=== PATIENT | female | born 1965 | race Caucasian/White ===

== ENCOUNTER 2024-01-01 11:52 | Inpatient (IN) | payer MEDICAID ==
[~2024-01-01] VITALS: Ht 154.9 cm; Wt 45.3 kg
[~2024-01-01 11:52] MED LIST: METHADONE
[2024-01-01 13:24] LABS: Basophils # (auto) 0 10 ^3/uL (0-0.2); Basophils % (auto) 0.4 % (0.0-2.0); Eosinophils # (auto) 0.1 10 ^3/uL (0-0.8); Eosinophils % (auto) 1.9 % (0.0-7.0); Hematocrit 25.7 % (36.0-46.0); Hemoglobin 7.9 g/dL (12.2-16.2); Lymphocytes # (auto) 0.8 10 ^3/uL (0.4-5.4); Lymphocytes % (auto) 23.5 % (10.0-50.0); Mean Corpuscular Hemoglobin 21.3 pg (28.0-32.0); Mean Corpuscular Hgb Conc. 30.8 g/dL (32.0-36.0); Monocytes # (auto) 0.4 10 ^3/uL (0-1.3); Monocytes % (auto) 10.8 % (0.0-12.0); Neutrophils # (auto) 2.2 10 ^3/uL (1.6-8.6); Neutrophils % (auto) 63.4 % (37.0-80.0); Nucleated Red Blood Cells % 0.1 %; Platelet Count (auto) 227 10^3/uL (140-450); Red Blood Cells 3.72 10^6/uL (4.0-5.20); Red Cell Distribution Width 20.5 % (11.8-14.3); White Blood Cell 3.5 10^3/uL (4.4-10.8)
[2024-01-01 13:40] LABS: Chloride 105 mmol/L (98-107); Potassium 4.5 mmol/L (3.5-5.1); Sodium 138 mmol/L (136-145)
[2024-01-01 13:41] LABS: Anion Gap 4 (5-15); Carbon Dioxide 29 mmol/L (20-31)
[2024-01-01 13:42] LABS: Calcium 8.8 mg/dL (8.7-10.4)
[2024-01-01 13:46] LABS: BUN/Creatinine Ratio 23.1 (10.0-20.0); Blood Urea Nitrogen 18 mg/dL (9-23); Glucose 83 mg/dL (74-106)
[2024-01-01 13:56] LABS: CRP High Sensitivity 1.43 mg/dL (<1.0)
[2024-01-01 14:06] LABS: Erythrocyte Sedimentation Rate 106 mm/hr (0-20)
[2024-01-01 14:32] LABS: Ovalocytes FEW
[2024-01-01 14:33] LABS: Anisocytosis Slight; Hypochromia Moderate; Platelet Estimate Adequate
[2024-01-01] MEDS ORDERED: SODIUM CHLORIDE 0.9% 500 ML IV ONE (17:30)
[2024-01-01] MEDS ORDERED: VANCOMYCIN 750mg/150ml 150 ML IV ONE (18:00)
[2024-01-01] MEDS: cefTRIAXone 1GM/50ML D5W 50 ML IV ONE (19:04)
[2024-01-01] MEDS: SODIUM CHLORIDE 0.9% 1,000 ML IV ONE (19:04)
[2024-01-01 19:40] VITALS: RESP 16
[2024-01-01] MEDS: VANCOMYCIN PER PHARMACY 0 MG IV SCH (20:49)
[2024-01-01] MEDS: VANCOMYCIN 750mg/150ml 150 ML IV SCH (21:08)
[2024-01-01] MEDS ORDERED: HALOPERIDOL LACTATE 5 MG/ML INJ VIAL IM PRN (21:45)
[2024-01-01] MEDS ORDERED: ACETAMINOPHEN 325 MG TAB PO PRN (21:45)
[2024-01-01] MEDS ORDERED: MORPHINE SULFATE INJ 2 MG/ml SYRG IV PRN (21:45)
[2024-01-01] MEDS ORDERED: NITROGLYCERIN 0.4 MG SL TAB SL PRN (21:45)
[2024-01-01] MEDS: SODIUM CHLOR 0.9% PF (SALINE LOCK) 10ML VIAL/SYR IV SCH (22:17)
[2024-01-01 22:48] LABS: % Iron Saturation 7.5 % (15-50)
[2024-01-01 23:36] LABS: Folate (Folic Acid) 14.11 ng/mL (>5.38)
[2024-01-02] MEDS: ERGOCALCIFEROL 50,000 UNIT(1.25MG) CAP PO SCH (02:35)
[2024-01-02] MEDS: ONDANSETRON HCL 4 MG/2 ML VIAL IV PRN (04:29)
[2024-01-02] MEDS: PANTOPRAZOLE 40 MG TAB PO SCH (05:28)
[2024-01-02 06:07] LABS: Basophils # (auto) 0 10 ^3/uL (0-0.2); Eosinophils # (auto) 0.1 10 ^3/uL (0-0.8); Lymphocytes # (auto) 0.6 10 ^3/uL (0.4-5.4); Monocytes # (auto) 0.3 10 ^3/uL (0-1.3); Neutrophils # (auto) 2.4 10 ^3/uL (1.6-8.6)
[2024-01-02 06:09] LABS: Basophils % (auto) 0.7 % (0.0-2.0); Eosinophils % (auto) 2.1 % (0.0-7.0); Hematocrit 27.8 % (36.0-46.0); Hemoglobin 8.3 g/dL (12.2-16.2); Lymphocytes % (auto) 17.4 % (10.0-50.0); Mean Corpuscular Hemoglobin 20.9 pg (28.0-32.0); Mean Corpuscular Hgb Conc. 29.9 g/dL (32.0-36.0); Mean Corpuscular Volume 69.8 fL (80.0-100.0); Neutrophils % (auto) 69.8 % (37.0-80.0); Nucleated Red Blood Cells % 0.1 %; Platelet Count (auto) 185 10^3/uL (140-450); Red Blood Cells 3.98 10^6/uL (4.0-5.20); White Blood Cell 3.4 10^3/uL (4.4-10.8)
[2024-01-02 06:14] LABS: Albumin 3.2 g/dL (3.2-4.8); Alkaline Phosphatase 84 U/L (46-116); Anion Gap 4 (5-15); Aspartate Aminotransferase 12 U/L (13-40); BUN/Creatinine Ratio 18.7 (10.0-20.0); Bilirubin, Total 0.2 mg/dL (0.2-1.0); Blood Urea Nitrogen 17 mg/dL (9-23); Calcium 8.6 mg/dL (8.7-10.4); Carbon Dioxide 26 mmol/L (20-31); Chloride 111 mmol/L (98-107); Glucose 90 mg/dL (74-106); Potassium 4.3 mmol/L (3.5-5.1); Sodium 141 mmol/L (136-145); Total Protein 7.5 g/dL (5.7-8.2)
[2024-01-02 06:35] LABS: Alanine Aminotransferase < 9 U/L (7-40)
[2024-01-02 06:38] LABS: Red Cell Distribution Width 20.6 % (11.8-14.3)
[2024-01-02 07:47] LABS: Anisocytosis Slight; Hypochromia Moderate; Platelet Estimate Adequate
[2024-01-02 10:46] VITALS: RESP 18
[2024-01-02] MEDS: ENOXAPARIN SOD 40 MG/0.4 ML SYRINGE SC SCH (11:24)
[2024-01-02] MEDS: IRON SUCROSE COMPLEX 110 ML IV SCH (13:01)
[2024-01-02] MEDS ORDERED: CLIN1CAP70 PO (14:23)
[2024-01-02 14:36] VITALS: BP 120/62; PULSE 85; RESP 15; TEMP 98.2; O2SAT 93; O2SAT 96
[2024-01-02 14:45] VITALS: BP 120/62; PULSE 85; RESP 18; TEMP 98.2; O2SAT 93
[2024-01-02] MEDS ORDERED: FER325T PO (15:06)
[2024-01-02 18:09] VITALS: TEMP 36.8
[2024-01-02] MEDS ORDERED: cefTRIAXone 1GM/50ML D5W 50 ML IV SCH (21:00)
[2024-01-05 08:39] LABS: Hepatitis B Surface Antigen Negative (Negative)
[2024-01-05 10:56] LABS: Hepatitis C Antibody Positive (Negative)
== END 2024-01-02 18:35 | disposition home or self-care (01) | DRG 383 ==
LOC: ER 11:52 → OVERFLOW 21:34 → CENTRAL 01-02 14:10
PROVIDERS: ADMIT Hospitalist; ATTEND Hospitalist
DX: L03.115 Cellulitis of right lower limb (principal); E44.1 Mild protein-calorie malnutrition; S91.301A Unspecified open wound, right foot, initial encounter; L97.918 Non-pressure chronic ulcer of unspecified part of right lower leg with other specified severity; S91.302A Unspecified open wound, left foot, initial encounter; F17.210 Nicotine dependence, cigarettes, uncomplicated; D50.9 Iron deficiency anemia, unspecified; E55.9 Vitamin D deficiency, unspecified; E87.6 Hypokalemia; L97.919 Non-pressure chronic ulcer of unspecified part of right lower leg with unspecified severity; H54.61 Unqualified visual loss, right eye, normal vision left eye; M06.9 Rheumatoid arthritis, unspecified; Z59.00 Homelessness unspecified; Z82.3 Family history of stroke; Z68.1 Body mass index [BMI] 19.9 or less, adult; Z80.0 Family history of malignant neoplasm of digestive organs; Z82.49 Family history of ischemic heart disease and other diseases of the circulatory system; X58.XXXA Exposure to other specified factors, initial encounter; Y93.9 Activity, unspecified; Y92.89 Other specified places as the place of occurrence of the external cause; Y99.8 Other external cause status
CPT/HCPCS: 36415; 73700; 80048; 80053; 80202; 82306; 82607; 82746; 83036; 83540; 83550; 83605; 84443; 85025; 85652; 86141; 86803; 87040; 87340; 93925; G0378; J1756; J2405